=== PATIENT | female | born 1970 | race Caucasian/White ===

== ENCOUNTER 2016-03-17 08:59 | Inpatient (IN) | payer OTHER ==
[~2016-03-17] VITALS: Ht 172.7 cm; Wt 74.4 kg
[2016-03-17 09:43] LABS: HEMATOCRIT 35.4 % (36.0-46.0); MCH 30.5 PG (29.0-34.0); MCHC 33.3 G/DL (30.0-36.0); MCV 91.5 FL (83-99); MEAN PLAT.VOLUME 9.6 uM^3 (9.5-12.4); PLATELET COUNT 439 K/uL (156-360); RBC DIS.WIDTH-CV 12.3 % (11.8-14.6); RBC DIS.WIDTH-SD 40.4 % (39-53); RED BLOOD COUNT 3.87 M/uL (3.80-5.20); WHITE BLOOD COUNT 20.2 K/uL (4.1-10.2)
[2016-03-17 09:55] LABS: ADD MIUA? YES; BILIRUBIN NEGATIVE; BLOOD SMALL; COLOR YELLOW ((YELLOW)); GLUCOSE (STRIP) NEGATIVE; KETONES 20; LEUKOCYTES TRACE; NITRITE NEGATIVE; PROTEIN (STRIP) 30; SPECIFIC GRAVITY 1.023 (1.000-1.030)
[2016-03-17 09:57] LABS: CHLORIDE 101 mEq/L (99-109); POTASSIUM 3.7 mEq/L (3.7-5.4); SODIUM 135 mEq/L (136-147)
[2016-03-17 09:58] LABS: BACTERIA RARE /HPF; CASTS NONE SEEN /LPF; CRYSTALS NONE SEEN; EPITHELIAL CELLS RARE /HPF; MUCUS 2+ /LPF; UCUL ADDED? NO; WHITE BLOOD CELLS 0-5 /HPF (0-5)
[2016-03-17 10:00] LABS: GLUCOSE 132 mg/dL (70-99)
[2016-03-17 10:01] LABS: ANION GAP 10 MEQ/L (2-14)
[2016-03-17 10:02] LABS: TOTAL BILIRUBIN 0.4 mg/dL (0.0-1.0)
[2016-03-17 10:03] LABS: ALKALINE PHOSPHATASE 131 IU/L (3-129); GFR ESTIMATE (CALCULATED) > 59 mL/min/
[2016-03-17 10:05] LABS: UREA NITROGEN (BUN) 5 mg/dL (9-23)
[2016-03-17 10:14] LABS: QUANTITATIVE HCG < 4.0 MIU/ML
[2016-03-17] MEDS ORDERED: MULTI VITAMIN1 EACH PO (15:18)
[2016-03-17] MEDS ORDERED: CRESTOR10 MG PO (15:18)
[2016-03-17] MEDS ORDERED: CYANOCOBALAM1000 MCG PO (15:19)
[2016-03-17] MEDS ORDERED: OSTEO BI-FLEX1 EAC1 PO (15:19)
[2016-03-17 18:00] VITALS: BP 114/68
[2016-03-17 23:08] VITALS: BP 107/60
[2016-03-19 12:44] LABS: CHLAMYDIA TRACHOMATIS NEGATIVE; NEISSERIA GONORRHOEAE NEGATIVE
== END 2016-03-17 23:00 | disposition short-term general hospital (02) | DRG 759 ==
LOC: EME 08:59 → EDOF 17:11
PROVIDERS: Obstetrics & Gynecology
DX: N70.93 Salpingitis and oophoritis, unspecified (principal); N83.201 Unspecified ovarian cyst, right side; E78.5 Hyperlipidemia, unspecified; K59.00 Constipation, unspecified
CPT/HCPCS: 74177; 76856; 80048; 80053; 81003; 83605; 84702; 85025; 85027; 87040; 87491; 87591; 99281; 99285; J0295; J3010; J3370; J7050; J7120